=== PATIENT | male | born 1995 ===

== ENCOUNTER 2020-08-29 09:06 | Emergency (ER) | payer OTHER ==
[~2020-08-29] VITALS: Ht 182.9 cm; Wt 72.7 kg
[2020-08-29 09:23] VITALS: TEMP 98.6
[2020-08-29 10:10] LABS: BASO % 0.5 % (0.0-2.0); EOS # 0.1 (0.0-0.7); EOS % 1.4 % (0-4.0); GRAN # 4.3 (1.4-6.5); GRAN % 66.7 % (42.2-75.2); HEMATOCRIT 44.4 % (42.0-52.0); HEMOGLOBIN 14.6 g/dl (13.5-18.0); LYMPH # 1.7 (1.2-3.4); LYMPH % 25.5 % (20.0-51.0); MEAN CELL VOLUME 92 fl (80.0-100.0); MEAN CORPUSCULAR HEMOGLOBIN 30 pg (27.0-31.0); MEAN CORPUSCULAR HGB CONC 33 g/dl (33.0-37.0); MEAN PLATELET VOLUME 10.9 fl (7.4-10.4); MONO # 0.4 (0.1-0.6); MONO % 5.7 % (1.7-9.3); PLATELET COUNT 248 K/mm3 (130-400); RED BLOOD COUNT 4.84 M/mm3 (4.20-5.60); REDCELL DISTRIBUTION WIDTH-CV 12.6 % (11.5-14.5)
[2020-08-29 10:23] LABS: ALANINE AMINOTRANSFERASE 29 U/L (4-49); ALBUMIN 4.7 gm/dL (3.5-5.0); ALKALINE PHOSPHATASE 57 U/L (50-136); ANION GAP 8 mmol/L (7-16); AST,SGOT 37 U/L (15-37); BILIRUBIN,TOTAL 0.6 mg/dL (0.0-1.0); BLOOD UREA NITROGEN 10 mg/dL (9-20); CALCIUM 9.5 mg/dL (8.4-10.2); CARBON DIOXIDE 28 mmol/L (22-30); CHLORIDE 103 mmol/L (98-107); GLUCOSE 95 mg/dL (74-106); LIPASE 46 U/L (23-300); POTASSIUM 4.4 mmol/L (3.4-5.0); SODIUM 139 mmol/L (137-145); TOTAL PROTEIN 8.3 gm/dL (6.4-8.2)
[2020-08-29 10:27] LABS: C-REACTIVE PROTEIN < 0.5 mg/dL (0.0-0.9)
[2020-08-29 10:28] LABS: COLLECTION METHOD CLEAN CATCH
[2020-08-29 10:34] LABS: MUCOUS Present /lpf; PH 7 (5-8); SQUAMOUS EPITHELIAL 0-2 /hpf; URINE APPEARANCE Clear; URINE BACTERIA None Seen /hpf; URINE BILIRUBIN Negative (NEGATIVE); URINE BLOOD Negative (NEGATIVE); URINE COLOR Yellow; URINE GLUCOSE Negative (NEGATIVE); URINE KETONE Negative (NEGATIVE); URINE LEUKOCYTE ESTERASE Trace (NEGATIVE); URINE NITRATE Negative (NEGATIVE); URINE PROTEIN(semi-quant) Negative (NEGATIVE); URINE UROBILINOGEN Negative (NEGATIVE)
[2020-08-29 11:08] VITALS: BP 129/80; PULSE 75
== END 2020-08-29 10:45 | disposition home or self-care (01) ==
LOC: COL.ER 09:06
PROVIDERS: Family Medicine
DX: R06.00 Dyspnea, unspecified (principal); R50.9 Fever, unspecified; R11.2 Nausea with vomiting, unspecified; R53.1 Weakness; F17.200 Nicotine dependence, unspecified, uncomplicated; Z86.16 Personal history of COVID-19; Z20.822 Contact with and (suspected) exposure to COVID-19
CPT/HCPCS: J2405; J7120

== ENCOUNTER 2021-01-05 16:39 | Emergency (ER) | payer OTHER ==
[~2021-01-05] VITALS: Ht 188 cm; Wt 99.1 kg
[2021-01-05 17:14] VITALS: TEMP 98.4
[2021-01-05 20:37] VITALS: BP 126/71; PULSE 78
== END 2021-01-05 20:40 | disposition home or self-care (01) ==
LOC: COL.ER 16:39
DX: M54.6 Pain in thoracic spine (principal)
CPT/HCPCS: J1885

== ENCOUNTER 2021-05-31 20:56 | Emergency (ER) | payer OTHER ==
[~2021-05-31] VITALS: Ht 188 cm; Wt 101.4 kg
[2021-05-31 21:06] VITALS: TEMP 98.4
[2021-05-31] MEDS ORDERED: FLEXERIL 1010 MG/TAB PO (22:38)
[2021-05-31 22:54] VITALS: BP 144/80; PULSE 86
== END 2021-05-31 22:54 | disposition home or self-care (01) ==
LOC: COL.ER 20:56
DX: S29.012A Strain of muscle and tendon of back wall of thorax, initial encounter (principal); X58.XXXA Exposure to other specified factors, initial encounter
CPT/HCPCS: J1885

== ENCOUNTER 2021-07-02 22:40 | Emergency (ER) | payer OTHER ==
[~2021-07-02] VITALS: Ht 190.5 cm; Wt 101.4 kg
[~2021-07-02 22:40] MED LIST: FLEXERIL 1010 MG/TAB PO
[2021-07-03] MEDS ORDERED: VALTREX 50500 MG/TAB PO (00:07)
[2021-07-03 00:38] VITALS: BP 119/66; PULSE 87; TEMP 97.5
== END 2021-07-03 00:38 | disposition home or self-care (01) ==
LOC: COL.ER 22:40
DX: A60.00 Herpesviral infection of urogenital system, unspecified (principal); F17.210 Nicotine dependence, cigarettes, uncomplicated

== ENCOUNTER → 2021-08-30 | Outpatient (CLI) | payer OTHER ==
[~2021-08-30] MED LIST changes: +VALTREX 50500 MG/TAB PO
== END ==
LOC: MHCPAIN 09:20
DX: M47.817 Spondylosis without myelopathy or radiculopathy, lumbosacral region (principal); M53.3 Sacrococcygeal disorders, not elsewhere classified; M54.50 Low back pain, unspecified; M47.814 Spondylosis without myelopathy or radiculopathy, thoracic region
CPT/HCPCS: G0463

== ENCOUNTER → 2021-09-01 | Outpatient (CLI) | payer OTHER | LOC: MHCPAIN 09:51 | DX: M47.816 Spondylosis without myelopathy or radiculopathy, lumbar region (principal); M54.16 Radiculopathy, lumbar region; M54.50 Low back pain, unspecified; M53.3 Sacrococcygeal disorders, not elsewhere classified | CPT/HCPCS: J1100; Q9967 ==

== ENCOUNTER → 2021-09-20 | Outpatient (CLI) | payer OTHER | LOC: MHCPAIN 10:44 | DX: M54.50 Low back pain, unspecified (principal); M53.3 Sacrococcygeal disorders, not elsewhere classified; G89.29 Other chronic pain | CPT/HCPCS: G0463 ==

== ENCOUNTER 2021-12-05 10:23 | Emergency (ER) | payer OTHER ==
[~2021-12-05] VITALS: Ht 190.5 cm; Wt 102.7 kg
[2021-12-05 10:47] VITALS: BP 123/80; PULSE 51; TEMP 97.9
[2021-12-05] MEDS ORDERED: AMOXICILLIN 50500 MG PO (10:56)
[2021-12-05] MEDS ORDERED: NORCO 325 MG-51 TAB PO (10:56)
== END 2021-12-05 11:10 | disposition home or self-care (01) ==
LOC: COL.ER 10:23
DX: G89.18 Other acute postprocedural pain (principal); K08.89 Other specified disorders of teeth and supporting structures; Z98.890 Other specified postprocedural states

== ENCOUNTER → 2022-02-22 | Outpatient (CLI) | payer OTHER ==
[~2022-02-22] MED LIST changes: +AMOXICILLIN 50500 MG PO; +NORCO 325 MG-51 TAB PO
== END ==
LOC: MHCPAIN 09:25
DX: M47.817 Spondylosis without myelopathy or radiculopathy, lumbosacral region (principal); M53.3 Sacrococcygeal disorders, not elsewhere classified; M54.50 Low back pain, unspecified
CPT/HCPCS: G0463